=== PATIENT | female | born 1965 | race Two or more races ===

== ENCOUNTER → 2017-08-08 | Emergency (ER) | payer OTHER ==
[~2017-08-08] VITALS: Ht 172.7 cm; Wt 81.6 kg
[~2017-08-08] MED LIST: CLONAZEPAM0.5 MG PO; CORTISPORIN EAR10 M1 OT; GILTUSS TR TAB1 EACH PO; LOSARTAN POTAS100 MG; LOSARTAN POTAS100 MG PO; MYCO NAIL30 ML TP; SYNTHROID100 MCG PO; SYNTHROID112 MCG; SYNTHROID112 MCG PO; SYNTHROID137 MCG; SYNTHROID137 MCG PO; TESSALON PERLE100 MG PO; VALISONE15 GM TP; ZITHROMAX TRI-500 MG PO; ZOCOR20 MG; ZOCOR20 MG PO; ZYRTEC10 M3 PO; ZYRTEC10 MG PO; medrol pack
== END | disposition home or self-care (01) ==
LOC: ER 13:22
DX: T78.3XXD Angioneurotic edema, subsequent encounter (principal)

== ENCOUNTER 2017-08-11 10:30 | Emergency (ER) | payer OTHER ==
[~2017-08-11] VITALS: Ht 172.7 cm; Wt 81.6 kg
== END 2017-08-11 14:07 | disposition home or self-care (01) ==
LOC: ER 10:30
DX: L30.8 Other specified dermatitis (principal)

== ENCOUNTER 2017-08-17 15:09 | Emergency (ER) | payer OTHER ==
[~2017-08-17] VITALS: Ht 172.7 cm; Wt 81.6 kg
[2017-08-17] MEDS ORDERED: PREMPRO 0.45-11 EACH (15:34)
== END 2017-08-17 18:42 | disposition home or self-care (01) ==
LOC: ER 15:09
DX: L20.89 Other atopic dermatitis (principal)

== ENCOUNTER → 2017-09-02 | Outpatient (CLI) | payer OTHER ==
[~2017-09-02] VITALS: Ht 152.4 cm; Wt 80.7 kg
[~2017-09-02] MED LIST changes: +PREMPRO 0.45-11 EACH
== END | disposition home or self-care (01) ==
LOC: PPHC 17:39
DX: L50.8 Other urticaria (principal)

== ENCOUNTER → 2017-09-11 08:46 | Outpatient (CLI) | payer OTHER | END | disposition home or self-care (01) | LOC: LAB 08:35 | DX: E03.8 Other specified hypothyroidism (principal); I10 Essential (primary) hypertension; E78.4 Other hyperlipidemia; M25.50 Pain in unspecified joint ==

== ENCOUNTER → 2017-11-20 | Emergency (ER) | payer OTHER ==
[~2017-11-20] VITALS: Ht 172.7 cm; Wt 83.9 kg
== END | disposition home or self-care (01) ==
LOC: ER 17:28
DX: R21 Rash and other nonspecific skin eruption (principal); T78.49XA Other allergy, initial encounter; X58.XXXA Exposure to other specified factors, initial encounter; J10.1 Influenza due to other identified influenza virus with other respiratory manifestations

== ENCOUNTER → 2017-11-27 | Outpatient (CLI) | payer OTHER ==
[~2017-11-27] MED LIST changes: +LEVOTHYROXINE125 MCG
== END | disposition home or self-care (01) ==
LOC: PPHC 09:13
DX: R51 Headache (principal)

== ENCOUNTER → 2017-12-07 | Outpatient (CLI) | payer OTHER | END | disposition home or self-care (01) | LOC: PPHC 08:43 | DX: J06.9 Acute upper respiratory infection, unspecified (principal) ==

== ENCOUNTER → 2018-01-31 09:16 | Outpatient (CLI) | payer OTHER | END | disposition home or self-care (01) | LOC: LAB 09:16 | DX: E03.8 Other specified hypothyroidism (principal); Z11.3 Encounter for screening for infections with a predominantly sexual mode of transmission ==

== ENCOUNTER 2018-02-26 08:00 | Outpatient (CLI) | payer OTHER | END 2018-02-26 11:02 | disposition home or self-care (01) | LOC: RAD 08:00 → ADM 15:15 | DX: M25.511 Pain in right shoulder (principal) ==

== ENCOUNTER → 2018-05-12 12:58 | Outpatient (CLI) | payer OTHER | END | disposition home or self-care (01) | LOC: LAB 09:22 | DX: J11.1 Influenza due to unidentified influenza virus with other respiratory manifestations (principal) ==

== ENCOUNTER → 2018-08-14 | Outpatient (CLI) | payer OTHER | END | disposition home or self-care (01) | LOC: RAD 10:40 | DX: E07.89 Other specified disorders of thyroid (principal); I10 Essential (primary) hypertension ==

== ENCOUNTER → 2018-08-15 08:10 | Outpatient (CLI) | payer OTHER | END | disposition home or self-care (01) | LOC: LAB 07:32 | DX: E07.89 Other specified disorders of thyroid (principal); E78.49 Other hyperlipidemia ==

== ENCOUNTER → 2023-06-26 | Outpatient (CLI) | payer OTHER | END | disposition home or self-care (01) | LOC: NUCLEAR 07:08 | PROVIDERS: ATTEND Internal Medicine Endocrinology, Diabetes & Metabolism | DX: M81.0 Age-related osteoporosis without current pathological fracture (principal); E21.3 Hyperparathyroidism, unspecified ==

== ENCOUNTER 2024-03-18 07:06 | Outpatient (CLI) | payer OTHER ==
[2024-03-18 08:41] LABS: ALBUMIN 3.8 gm/dL (3.4-5.0); BILIRUBIN TOTAL 0.92 mg/dL (0.3-1.2); CALCIUM 9.3 mg/dL (8.5-10.1); CHOL HDL RATIO 3.7 (0-5.0); CREATININE SERUM 0.56 mg/dL (0.55-1.02); GFR 110.42; GLOBULINA 3.5 G/DL (2.4-3.5); POTASSIUM 4.36 mEq/L (3.5-5.1); T4 FREE 1.26 NG/ML (0.76-1.46); TOTAL PROTEIN 7.3 gm/dL (6.4-8.2); TSH 1.75 uIU/mL (0.358-3.74)
[2024-03-18] MEDS ORDERED: GABAPENTIN300 M2 PO (10:54)
== END 2024-03-18 15:05 | disposition home or self-care (01) ==
LOC: LAB 07:06
PROVIDERS: ATTEND Internal Medicine Endocrinology, Diabetes & Metabolism
DX: E03.9 Hypothyroidism, unspecified (principal); I10 Essential (primary) hypertension; E78.2 Mixed hyperlipidemia

== ENCOUNTER 2024-03-18 12:51 | Outpatient (CLI) | payer OTHER ==
[~2024-03-18 12:51] MED LIST changes: +GABAPENTIN300 M2 PO
== END 2024-03-18 12:54 | disposition home or self-care (01) ==
LOC: SONOGRAMA 12:51
PROVIDERS: ATTEND Internal Medicine Endocrinology, Diabetes & Metabolism
DX: E04.1 Nontoxic single thyroid nodule (principal)

== ENCOUNTER 2024-07-08 06:52 | Outpatient (CLI) | payer OTHER ==
[2024-07-08 07:19] LABS: HEMATOCRIT 38.4 % (36.0-45.00); MEAN CELL VOLUME 85.6 fL (80.00-100.00); MEAN CORPUSCULAR HEMOGLOBIN 28.9 pg (27.00-32.0); MEAN CORPUSCULAR HGB CONC 33.8 g/dl (32.0-36.0); PLATELET COUNT 364 K/uL (150-450); RED BLOOD COUNT 4.49 M/uL (4.00-6.00); RED CELL DISTRIBUTION WIDTH 13.1 % (11.5-14.5)
[2024-07-08 08:22] LABS: ALBUMIN 3.7 gm/dL (3.4-5.0); BILIRUBIN TOTAL 0.63 mg/dL (0.3-1.2); CALCIUM 9.3 mg/dL (8.5-10.1); CHOL HDL RATIO 3.9 (0-5.0); CREATININE SERUM 0.67 mg/dL (0.55-1.02); GFR 89.48; GLOBULINA 3.5 G/DL (2.4-3.5); POTASSIUM 4.54 mEq/L (3.5-5.1); T4 FREE 1.37 NG/ML (0.76-1.46); TOTAL PROTEIN 7.2 gm/dL (6.4-8.2); TSH 1.02 uIU/mL (0.358-3.74)
[2024-07-08 10:16] LABS: FOLIC ACID 18.24 ng/ml (4.78-20); VITAMIN D3 25 HYDROXY 76.32 ng/ml (30-120)
== END 2024-07-08 06:53 | disposition home or self-care (01) ==
LOC: LAB 06:52
PROVIDERS: ATTEND Internal Medicine Endocrinology, Diabetes & Metabolism
DX: E03.9 Hypothyroidism, unspecified (principal); D64.9 Anemia, unspecified; E53.8 Deficiency of other specified B group vitamins; E78.2 Mixed hyperlipidemia; I10 Essential (primary) hypertension; E83.52 Hypercalcemia; E55.9 Vitamin D deficiency, unspecified

== ENCOUNTER 2024-11-06 06:44 | Outpatient (CLI) | payer OTHER ==
[2024-11-06 08:01] LABS: HEMATOCRIT 39.4 % (36.0-45.00); HEMOGLOBIN 13.2 g/dL (12.0-15.00); MEAN CELL VOLUME 85.6 fL (80.00-100.00); MEAN CORPUSCULAR HEMOGLOBIN 28.7 pg (27.00-32.0); MEAN CORPUSCULAR HGB CONC 33.6 g/dl (32.0-36.0); PLATELET COUNT 382 K/uL (150-450); RED BLOOD COUNT 4.61 M/uL (4.00-6.00); RED CELL DISTRIBUTION WIDTH 13.4 % (11.5-14.5)
[2024-11-06 08:21] LABS: ALBUMIN 3.6 gm/dL (3.4-5.0); BILIRUBIN TOTAL 1.11 mg/dL (0.3-1.2); CALCIUM 9.4 mg/dL (8.5-10.1); CHOL HDL RATIO 3.8 (0-5.0); CREATININE SERUM 0.64 mg/dL (0.55-1.02); GFR 94.34; GLOBULINA 3.7 G/DL (2.4-3.5); POTASSIUM 4.58 mEq/L (3.5-5.1); TOTAL PROTEIN 7.3 gm/dL (6.4-8.2)
[2024-11-06 12:44] LABS: FREE TRIODOTIRONINE 2.42 pg/ml (2.18-3.98); T4 FREE 1.18 NG/ML (0.76-1.46); TSH 1.74 uIU/mL (0.358-3.74)
== END 2024-11-06 06:46 | disposition home or self-care (01) ==
LOC: LAB 06:44
PROVIDERS: ATTEND Internal Medicine Endocrinology, Diabetes & Metabolism
DX: E03.9 Hypothyroidism, unspecified (principal); D64.9 Anemia, unspecified; E78.2 Mixed hyperlipidemia; I10 Essential (primary) hypertension; E55.9 Vitamin D deficiency, unspecified

== ENCOUNTER 2025-02-16 14:34 | Outpatient (CLI) | payer OTHER | END 2025-02-16 14:40 | disposition home or self-care (01) | LOC: RAD 14:34 | PROVIDERS: ATTEND Internal Medicine Cardiovascular Disease | DX: S83.91XA Sprain of unspecified site of right knee, initial encounter (principal); X58.XXXA Exposure to other specified factors, initial encounter; Y93.9 Activity, unspecified; Y92.9 Unspecified place or not applicable; Y99.9 Unspecified external cause status ==

== ENCOUNTER 2025-02-16 15:17 | Outpatient (CLI) | payer OTHER | END 2025-02-16 15:18 | disposition home or self-care (01) | LOC: LAB 15:17 | PROVIDERS: ATTEND Internal Medicine Cardiovascular Disease | DX: M10.9 Gout, unspecified (principal) ==

== ENCOUNTER 2025-03-11 06:54 | Outpatient (CLI) | payer OTHER ==
[2025-03-11 09:46] LABS: ALT/SGPT 30.0 U/L (12-78); AST/SGOT 19.0 U/L (15-37); BILIRUBIN TOTAL 1.04 mg/dL (0.3-1.2); BUN CREA RATIO 25.0 (7.0-25.0); CHOL HDL RATIO 3.8 (0-5.0); CREATININE SERUM 0.51 mg/dL (0.55-1.02); GFR 122.59; GLOBULINA 3.3 G/DL (2.4-3.5); GLUCOSE FASTING 90.0 mg/dL (65-100); HDL 53.0 mg/dl (40-60); LDL 134.0 mg/dl (0-130); OSMOLALITY SERUM 290.0 MOSM/KG (275-295); T4 FREE 1.22 NG/ML (0.76-1.46); TSH 0.512 uIU/mL (0.358-3.74); VLDL 16.0 (0-39)
== END 2025-03-11 06:56 | disposition home or self-care (01) ==
LOC: LAB 06:54
PROVIDERS: ATTEND Internal Medicine Endocrinology, Diabetes & Metabolism
DX: E03.9 Hypothyroidism, unspecified (principal); E78.2 Mixed hyperlipidemia; I10 Essential (primary) hypertension

== ENCOUNTER 2025-04-19 15:58 | Outpatient (CLI) | payer OTHER | END 2025-04-19 16:02 | disposition home or self-care (01) | LOC: RAD 15:58 | PROVIDERS: ATTEND Orthopaedic Surgery Adult Reconstructive Orthopaedic Surgery | DX: M25.562 Pain in left knee (principal) ==

== ENCOUNTER 2025-05-13 13:05 | Outpatient (CLI) | payer OTHER | END 2025-05-13 13:13 | disposition home or self-care (01) | LOC: MRI 13:05 | DX: M23.222 Derangement of posterior horn of medial meniscus due to old tear or injury, left knee (principal) | CPT/HCPCS: 73721 ==

== ENCOUNTER → 2025-06-23 06:51 | Outpatient (CLI) | payer OTHER ==
[2025-06-23 08:33] LABS: URINE APPEARANCE Clear; URINE BILIRRUBIN Negative (NEGATIVE); URINE BLOOD Negative; URINE COLOR Yellow; URINE GLUCOSE Negative (NEGATIVE); URINE KETONE Negative (NEGATIVE); URINE LEUKOCYTE Negative; URINE NITRATE Negative; URINE PROTEIN Negative (NEGATIVE); URINE UROBILINOGEN 0.2 E.U./dl
[2025-06-23 08:34] LABS: URINE BACTERIA 52.7 uL (0.0-1933); URINE EPITHELIAL CELLS 9.5 uL (0.0-38.8); URINE RBC 2.0 uL (0.0-20.8); URINE WBC 7.0 uL (0.0-23.2)
[2025-06-23 08:48] LABS: ALT/SGPT 30.0 U/L (12-78); AST/SGOT 19.0 U/L (15-37); BILIRUBIN TOTAL 1.02 mg/dL (0.3-1.2); BUN CREA RATIO 28.0 (7.0-25.0); CHOL HDL RATIO 3.6 (0-5.0); CREATININE SERUM 0.53 mg/dL (0.55-1.02); FREE TRIODOTIRONINE 2.63 pg/ml (2.18-3.98); GFR 117.27; GLOBULINA 3.4 G/DL (2.4-3.5); GLUCOSE FASTING 100.0 mg/dL (65-100); HDL 62.0 mg/dl (40-60); LDL 148.0 mg/dl (0-130); OSMOLALITY SERUM 284.0 MOSM/KG (275-295); T4 FREE 1.43 NG/ML (0.76-1.46); TSH 0.738 uIU/mL (0.358-3.74); VLDL 14.0 (0-39)
[2025-06-23 08:59] LABS: URINE CAST 0.00 uL (0.0-1.40)
== END | disposition home or self-care (01) ==
LOC: LAB 06:51
PROVIDERS: ATTEND Internal Medicine Endocrinology, Diabetes & Metabolism
DX: M81.0 Age-related osteoporosis without current pathological fracture (principal); E03.9 Hypothyroidism, unspecified; E78.2 Mixed hyperlipidemia; I10 Essential (primary) hypertension; E29.1 Testicular hypofunction; N39.0 Urinary tract infection, site not specified